=== PATIENT | female | born 1955 | race Caucasian/White ===

== ENCOUNTER 2017-07-24 07:08 | Emergency (ER) | payer OTHER, BC ==
[2017-07-24 07:24] VITALS: TEMP 98.2
[2017-07-24] MEDS ORDERED: CIPROFLOXACIN 500 MG TAB PO ONE (07:45)
[2017-07-24] MEDS ORDERED: ONDANSETRON ODT (ER DISP) 8 MG TAB PO ONE (07:45)
[2017-07-24] MEDS ORDERED: ONDANSETRON ODT 8 MG TAB SL ONE (07:45)
[2017-07-24] MEDS ORDERED: CIPROFLOXACIN 500 MG TAB (ER DISPENSE) PO ONE (07:45)
--- NOTE | 2017-07-24 07:49 | ED.PDOC ---
History of Present Illness - General Chief Complaint: Problem Stated Complaint: Burning when urinating Time Seen by Provider: 07/24/17 07:45 Source: patient, RN notes reviewed, Vital Signs reviewed Exam Limitations: no limitations - History of Present Illness Initial Comments: Patient comes to ER with c/o "cystitis symptoms" that started on Monday. She was going to try making it through the holiday with conservative treatment but last night developed chills, nausea and back pain. She is concerned it is going to her kidneys. Timing/Duration: getting worse Quality: moderate, aching, burning Onset Location: suprapubic Radiation: generalized flank Activites at Onset: none Prior abdominal problems: similar symptoms Sexual intercourse history: single partner Improving Factors: medication - Tylenol Worsening Factors: nothing Associated Symptoms: dysuria, fever/chills, lower back pain, nausea/vomiting, urinary frequency Allergies/Adverse Reactions: Allergies Penicillin G Allergy (Verified 07/24/17 07:45) Home Medications: Ambulatory Orders Dicyclomine HCl [Bentyl] 20 mg PO Q6HRS PRN #20 tab 07/19/14 Ciprofloxacin [Cipro] 500 mg PO BID #10 tab 07/24/17 Review of Systems - Review of Systems Constitutional: States: chills, fever, malaise Respiratory: States: no symptoms reported Cardiology: States: no symptoms reported Gastrointestinal/Abdominal: States: see HPI, abdominal pain, nausea. Denies: vomiting Genitourinary: States: see HPI, dysuria, frequency Musculoskeletal: States: back pain Skin: States: no symptoms reported Neurological: States: no symptoms reported All other Systems: No Change from Baseline Past Medical History (General) - Patient Medical History Hx Seizures: No Hx Stroke: No Hx Dementia: No Hx Asthma: No Hx of COPD: No Hx Cardiac Disorders: No Hx Congestive Heart Failure: No Hx Pacemaker: No Hx Hypertension: No Hx Thyroid Disease: Yes Hx Diabetes: No Hx Gastroesophageal Reflux: No Hx Renal Disease: No Hx Cancer: No Hx of HIV: No Hx Hepatitis C: No Hx MRSA: No Surgical History: tonsillectomy - Vaccination History Hx Tetanus, Diphtheria Vaccination: No Hx Influenza Vaccination: No - Social History Hx Tobacco Use: No Hx Alcohol Use: No Hx Substance Use: No Hx Substance Use Treatment: No Hx Depression: No Feels Threatened In Home Enviroment: No Feels Threatened In a Relationship: No - Female History Patient is a Female of Child Bearing Age (10 -59 yrs old): No Patient : No Family Medical History - Family History Mother Family History: No Known Physical Exam - Physical Exam General Appearance: Alert, Comfortable, No apparent distress, Well Developed, Well Groomed, Well Hydrated, Well Nourished Cardiovascular/Respiratory: regular rate, rhythm, no M/R/G, normal breath sounds , no respiratory distress Gastrointestinal/Abdominal: normal bowel sounds, non tender, soft, no organomegaly, no pulsatile mass Back Exam: no CVA tenderness Extremity: normal range of motion, non-tender Neurologic: alert, normal mood/affect, oriented x 3 Skin Exam: normal color, warm/dry Comments: Vital Signs 07/24/17 07:20 Temperature 98.2 F Pulse Rate [ 88 Right Brachial] Respiratory 15 Rate Blood Pressure 123/78 [Right Arm] O2 Sat by Pulse 94 L Oximetry Progress - Results/Orders Results/Orders: Laboratory Results - last 24 hr 07/24/17 07:30 Urine Color Yellow Urine Appearance Sl cloudy Urine pH 7.5 Ur Specific [place] 1.020 Urine Protein Negative Urine Glucose (UA) Negative Urine Ketones Negative Urine Blood Negative Urine Nitrite Negative Urine Bilirubin Negative Urine Urobilinogen 1.0 Ur Leukocyte Esterase Negative Urine RBC 1-3 Urine WBC 5-10 H Ur Epithelial Cells 5-10 Amorphous Sediment 2+ Urine Bacteria 2+ H Departure - Departure Clinical Impression: Urinary tract infection Qualifiers: Urinary tract infection type: acute cystitis Hematuria presence: without hematuria Qualified Code(s): N30.00 - Acute cystitis without hematuria Time of Disposition: 07:50 Disposition: Discharge to Home or Self Care Condition: Good Departure Forms: ED Discharge - Pt. Copy, Patient Portal Self Enrollment Instructions: DI for Urinary Tract Infection (UTI) Diet: resume usual diet Activity: increase activity as tolerated Referrals: Nj Kapoor MD [Primary Care Provider] - 1-2 Weeks Prescriptions: Ciprofloxacin [Cipro] 500 mg PO BID #10 tab Home Medications: Ambulatory Orders Dicyclomine HCl [Bentyl] 20 mg PO Q6HRS PRN #20 tab 07/19/14 Ciprofloxacin [Cipro] 500 mg PO BID #10 tab 07/24/17
[2017-07-24 08:15] VITALS: BP 124/72; O2SAT 96
== END 2017-07-24 08:09 | disposition home or self-care (01) ==
LOC: ER 07:08
DX: N30.00 Acute cystitis without hematuria (principal); E07.9 Disorder of thyroid, unspecified; Z79.899 Other long term (current) drug therapy; Z88.0 Allergy status to penicillin

== ENCOUNTER → 2020-09-03 | Outpatient (CLI) | payer OTHER, BC | LOC: LAB.O 12:14 | PROVIDERS: ATTEND Internal Medicine | DX: M06.9 Rheumatoid arthritis, unspecified (principal) ==